=== PATIENT | female | born 1960 | race Caucasian/White ===

== ENCOUNTER → 2016-08-08 | Day surgery (SDC) | payer MEDICARE | LOC: RAD 13:23 | PROVIDERS: ATTEND Orthopaedic Surgery | PROC: BP08ZZZ Plain Radiography of Right Shoulder (ICD-10-PCS; principal; 2016-08-08) | DX: M75.121 Complete rotator cuff tear or rupture of right shoulder, not specified as traumatic (principal); M25.511 Pain in right shoulder | CPT/HCPCS: 73040; 77002 ==

== ENCOUNTER 2016-11-13 13:29 | Inpatient (IN) | payer MEDICARE ==
[2016-11-13] MEDS ORDERED: TERBUTALINE SULFATE INJ/PF 1 MG/1 ML SDV SUBCUT ONE (13:36)
[2016-11-13] MEDS ORDERED: MAGNESIUM SULFATE/D5W 100 ML IV ONE (13:36)
[2016-11-13] MEDS ORDERED: IPRATROPIUM/ALBUTEROL 0.5-2.5 MG/3 ML AMPUL NEB ONE (13:37)
[2016-11-13 14:09] LABS: ABSOLUTE BASOPHILS # (AUTO) 0.1 10^3/uL (0.0-0.2); ABSOLUTE EOSINOPHILS # (AUTO) 0.5 10^3/uL (0.0-0.6); ABSOLUTE LYMPHOCYTES (AUTO) 2.1 10^3/uL (0.5-4.7); ABSOLUTE MONOCYTES (AUTO) 0.8 10^3/uL (0.1-1.4); ABSOLUTE NEUT (AUTO) 6.6 10^3/uL (1.7-8.2); BASOPHILS % (AUTO) 0.6 % (0-2); EOSINOPHILS % (AUTO) 5.4 % (0-6); HEMATOCRIT 37.3 % (36.0-47.0); HEMOGLOBIN 12.7 g/dL (12.0-15.5); HGB HCT DIFFERENCE 0.8; LYMPHOCYTES % (AUTO) 21.3 % (13-45); MEAN CORPUSCULAR HEMOGLOBIN 29.3 pg (27.0-33.4); MEAN CORPUSCULAR VOLUME 86 fl (80-97); MONOCYTES % (AUTO) 7.7 % (3-13); RED BLOOD COUNT 4.32 10^6/uL (3.72-5.28); RED CELL DISTRIBUTION WIDTH 14.7 % (11.5-14.0); WHITE BLOOD COUNT 10.1 10^3/uL (4.0-10.5)
[2016-11-13 14:24] LABS: VENOUS BLOOD BASE EXCESS -0.7 mmol/L; VENOUS BLOOD HCO3 23.8 mmol/L (20-32); VENOUS BLOOD PCO2 38.6 mmHg (35-63); VENOUS BLOOD PH 7.41 (7.30-7.42)
[2016-11-13 14:26] LABS: BLOOD UREA NITROGEN 19 mg/dL (7-20); CALCIUM 9.5 mg/dL (8.4-10.2); CREATININE RESULT 1.01 mg/dL (0.52-1.25); GLUCOSE 119 mg/dL (75-110)
[2016-11-13 14:27] LABS: ALANINE AMINOTRANSFERASE 26 U/L (9-52); ALBUMIN 4.1 g/dL (3.5-5.0); ALKALINE PHOSPHATASE 98 U/L (38-126); ANION GAP 14 (5-19); ASPARTATE AMINO TRANSFERASE 24 U/L (14-36); BILIRUBIN,DIRECT 0.5 mg/dL (0.0-0.4); BILIRUBIN,TOTAL 0.8 mg/dL (0.2-1.3); CARBON DIOXIDE 26 mmol/L (22-30); CHLORIDE 102 mmol/L (98-107); LIPASE 74.9 U/L (23-300); MAGNESIUM 3.4 mg/dL (1.6-2.3); POTASSIUM 4.4 mmol/L (3.6-5.0); SODIUM 141.6 mmol/L (137-145); TOTAL PROTEIN 7.7 g/dL (6.3-8.2)
--- NOTE | 2016-11-13 16:03 | ER Document Report ---
ED General - General Chief Complaint: Breathing Difficulty Stated Complaint: RESPIRATORY PROBLEM TRAVEL OUTSIDE OF THE [place] IN LAST 30 DAYS: No - HPI Patient complains to provider of: difficulty breathing Notes: Patient coming in via EMS from local urgent care after being seen for an acute asthma exacerbation. Patient was given albuterol treatment steroids and a dose of Rocephin prior to arrival here. Patient indicates that she has been intubated in the past for asthma patient has approximate 2-3 word dyspnea most of the other history of present illness is obtained from EMS. No difficulty in breathing the last few days due to recent travel no fevers influenza is up-to- date no other medical problems. Patient is on a mask with albuterol treatment upon my evaluation patient is very tachypneic with a respiratory rate approximately 35-40 - Related Data Allergies/Adverse Reactions: codeine [Codeine] Allergy (Verified 12/13/15 09:11) morphine [Morphine] Allergy (Verified 12/13/15 09:11) Sulfa (Sulfonamide Antibiotics) Allergy (Verified 12/13/15 09:11) Past Medical History - Social History Smoking Status: Unknown if Ever Smoked Family History: Reviewed & Not Pertinent - Past Medical History Cardiac Medical History: Denies: Hx Coronary Artery Disease, Hx Heart Attack, Hx Hypertension - hypotension Pulmonary Medical History: Reports: Hx Asthma Denies: Hx Bronchitis, Hx COPD, Hx Pneumonia Neurological Medical History: Denies: Hx Cerebrovascular Accident, Hx Seizures Past Surgical History: Reports: Hx Cardiac Surgery - Pacemaker/defib, Hx Pacemaker - Immunizations Immunizations up to date: Yes Hx Diphtheria, Pertussis, Tetanus Vaccination: Yes Hx Pneumococcal Vaccination: 07/20/12 Review of Systems - Review of Systems Constitutional: No symptoms reported EENT: No symptoms reported Cardiovascular: No symptoms reported Respiratory: Cough, Short of breath, Wheezing Gastrointestinal: No symptoms reported Genitourinary: No symptoms reported Female Genitourinary: No symptoms reported Musculoskeletal: No symptoms reported Skin: No symptoms reported Hematologic/Lymphatic: No symptoms reported Neurological/Psychological: No symptoms reported -: Yes All other systems reviewed and negative Physical Exam - Vital signs Vitals: Resp Pulse Ox 30 H 97 11/13/16 13:37 11/13/16 13:37 Interpretation: Tachypneic - General General appearance: Appears well, Alert - HEENT Head: Normocephalic, Atraumatic Eyes: Normal Pupils: PERRL - Respiratory Respiratory status: Respiratory distress - [id number] Chest status: Accessory muscle use Breath sounds: Rhonchi, Wheezing Chest palpation: Normal - Cardiovascular Rhythm: Regular Heart sounds: Normal auscultation Murmur: No - Abdominal Inspection: Normal Distension: No distension Bowel sounds: Normal Tenderness: Nontender Organomegaly: No organomegaly - Back Back: Normal, Nontender - Extremities General upper extremity: Normal inspection, Nontender, Normal color, Normal ROM , Normal temperature General lower extremity: Normal inspection, Nontender, Normal color, Normal ROM , Normal temperature, Normal weight bearing. No: Nina's sign - Neurological Neuro grossly intact: Yes Cognition: Normal Orientation: AAOx4 Larry Coma Scale Eye Opening: Spontaneous Lyons Coma Scale Verbal: Oriented Larry Coma Scale Motor: Obeys Commands Larry Coma Scale Total: 15 Speech: Normal Motor strength normal: LUE, RUE, LLE, RLE Sensory: Normal - Psychological Associated symptoms: Normal affect, Normal mood - Skin Skin Temperature: Warm Skin Moisture: Dry Skin Color: Normal Course - Re-evaluation Re-evalutation: 11/13/16 16:06 Patient with improvement after BiPAP. Patient case was discussed with hospitalist. This patient due to history may benefit from being in the ICU. Patient will be admitted for further evaluation. - Vital Signs Vital signs: Temp Pulse Resp BP Pulse Ox 15 133/90 H 100 11/13/16 15:01 11/13/16 15:01 11/13/16 15:01 - Laboratory Result Diagrams: 11/13/16 14:00 11/13/16 14:00 Laboratory results interpreted by me: 11/13/16 11/13/16 14:00 14:00 RDW 14.7 H Est GFR (Non-Af Amer) 56 L Glucose 119 H Magnesium 3.4 H Direct Bilirubin 0.5 H Critical Care Note - Critical Care Note Total time excluding time spent on procedures (mins): 40 Comments: Multiple evaluations managing BiPAP with patient with respiratory distress Discharge - Discharge Clinical Impression: Acute asthma exacerbation Qualifiers: Asthma severity: unspecified severity Qualified Code(s): J45.901 - Unspecified asthma with (acute) exacerbation Condition: Good Disposition: ADMITTED INPATIENT Admitting Provider: Hospitalist [facility] Unit Admitted: ICU Referrals: RACHEL HERRERA NP [Primary Care Provider] - Follow up as needed
[2016-11-13 16:23] LABS: ARTERIAL BLOOD BASE EXCESS -0.6 mmol/L; ARTERIAL BLOOD O2 SATURATION 84.7 % (94-98)
[2016-11-13] MEDS ORDERED: ALBUTEROL SULFATE 0.083% NEB 2.5 MG/3 ML AMPUL NEB PRN (16:23)
--- NOTE | 2016-11-13 16:47 | PDOC H&P ---
History of Present Illness Admission Date/PCP: 11/13/16 16:18 RACHEL HERRERA NP Patient complains of: Shortness of breath History of Present Illness: TALON LOPEZ is a 56 year old female Patient coming in via EMS from local urgent care after being seen for an acute asthma exacerbation. Patient was given albuterol treatment steroids and a dose of Rocephin prior to arrival here. Patient indicates that she has been intubated in the past for asthma patient has approximate 2-3 word dyspnea most of the other history of present illness is obtained from EMS. No difficulty in breathing the last few days due to recent travel no fevers influenza is up-to- date no other medical problems. Patient is on a mask with albuterol treatment upon my evaluation patient is very tachypneic with a respiratory rate approximately 35-40 Past Medical History Cardiac Medical History: Denies: Coronary Artery Disease, Myocardial Infarction, Hypertension - hypotension Pulmonary Medical History: Reports: Asthma Denies: Bronchitis, Chronic Obstructive Pulmonary Disease (COPD), Pneumonia Neurological Medical History: Denies: Seizures Hematology: Reports: Anemia Past Surgical History Past Surgical History: Reports: Pacemaker Social History Smoking Status: Unknown if Ever Smoked Past Social History Note: Unable to obtain information There is no family at the bedside ; patient is extremely dyspneic on BiPAP - Advance Directive Resuscitation Status: Full Code Family History Family History: Other - Unable to obtain the information patient cannot answer questions appropriately Parental Family History Reviewed: Yes Children Family History Reviewed: Yes Sibling(s) Family History Reviewed.: Yes Medication/Allergy Home Medications: Calcium Carbonate/Vitamin D3 [Calcium 600 + Vit D 400 Tablet] 1 tab PO DAILY Cetirizine HCl [Zyrtec 10 mg Chewable Tab] 1 tab PO DAILY 12/13/15 Cyanocobalamin (Vitamin B-12) [Vitamin B-12] 1 tab PO DAILY 12/13/15 Duloxetine HCl [Cymbalta] 1 cap PO DAILY 12/13/15 Gabapentin [Neurontin] 1 tab PO TID 12/13/15 L.acid/L.casei/B.bif/B.marcel/Fos [Probiotic Blend Capsule] 1 cap PO DAILY Naproxen 1 tab PO BID 12/13/15 Oxybutynin Chloride [Ditropan Xl] 1 tab PO DAILY 05/26/16 Propranolol HCl [Propranolol HCl ER] 80 mg PO DAILY 12/13/15 Temazepam 1 cap PO QHS 12/13/15 Allergies/Adverse Reactions: codeine [Codeine] Allergy (Verified 12/13/15 09:11) morphine [Morphine] Allergy (Verified 12/13/15 09:11) Sulfa (Sulfonamide Antibiotics) Allergy (Verified 12/13/15 09:11) Review of Systems ROS unobtainable: Other - Due to respiratory distress patient is on BiPAP Physical Exam Vital Signs: Temp Pulse Resp BP Pulse Ox 26 H 125/69 100 11/13/16 16:01 11/13/16 16:01 11/13/16 16:01 General appearance: PRESENT: severe distress, well-developed, well-nourished Head exam: PRESENT: atraumatic, normocephalic Eye exam: PRESENT: conjunctiva pink, EOMI, PERRLA. ABSENT: scleral icterus Respiratory exam: PRESENT: accessory muscle use, decreased breath sounds, wheezes Cardiovascular exam: PRESENT: RRR, tachycardia. ABSENT: rubs, systolic murmur Pulses: PRESENT: normal dorsalis pedis pul Vascular exam: PRESENT: normal capillary refill GI/Abdominal exam: PRESENT: normal bowel sounds, soft. ABSENT: distended, guarding, mass, organolmegaly, rebound, tenderness Rectal exam: PRESENT: deferred Neurological exam: PRESENT: awake, CN II-XII grossly intact Psychiatric exam: PRESENT: anxious Skin exam: PRESENT: dry, intact, warm. ABSENT: cyanosis, rash Results Impressions: Chest X-Ray 11/13/16 13:36 IMPRESSION: NO ACUTE RADIOGRAPHIC FINDING IN THE CHEST. Assessment & Plan - Diagnosis (1) Acute hypoxemic respiratory failure Is this a current diagnosis for this admission?: Yes (2) Acute asthma exacerbation Qualifiers: Asthma severity: unspecified severity Qualified Code(s): J45.901 - Unspecified asthma with (acute) exacerbation Is this a current diagnosis for this admission?: Yes - Time Time Spent with patient: continue patient on BiPAP support mentation so far is good VBGs showed a normal pH and hypoxemia Very poor IV access no central line will be placed Patient will be admitted to the intensive care unit for closer monitoring We will treat the patient with steroids nebs antibiotics The chest x-ray appears normal with a small cardiac silhouette but we'll obtain a BNP Patient's condition is critical if her condition worsens through the night she may need endotracheal intubation Critical Time spent with patient: 35 or more minutes
[2016-11-13] MEDS ORDERED: LEVOFLOXACIN 750 MG/D5W RTU 750 MG/150 ML RTUPB IV ONE (17:00)
--- NOTE | 2016-11-13 17:03 | Operative Report ---
Operative Report DATE OF SURGERY: 11/13/16 PREOPERATIVE DIAGNOSIS: Respiratory compromise critical need for intravenous access POSTOPERATIVE DIAGNOSIS: Same OPERATION: Right subclavian triple-lumen central venous catheter placement SURGEON: COREY RIVERA ANESTHESIA: Local TISSUE REMOVED OR ALTERED: None COMPLICATIONS: None ESTIMATED BLOOD LOSS: minimal INTRAOPERATIVE FINDINGS: None PROCEDURE: Informed consent was obtained. Patient's right the neck and chest was prepped and draped in usual sterile fashion. Local anesthetic was administered. The right subclavian vein was entered without difficulty. Guidewire was placed into the central circulation. Triple lumen central venous catheter was placed via the Seldinger technique. It withdrew blood and flushed easily. It was sutured in place. Dressings were applied. Patient tolerated procedure well with no apparent complications. Stat portable chest x-ray was ordered.
[2016-11-13] MEDS: NORMAL SALINE 1000 ML 1,000 ML IV PRN (17:54)
[2016-11-13] MEDS: METHYLPREDNISOLONE INJ 125 MG/2 ML SDV IV SCH (17:55)
[2016-11-13] MEDS ORDERED: DOXYCYCLINE HYCLATE 100 MG TABLET PO ONE (18:00)
[2016-11-13 18:38] LABS: APPEARANCE,URINE CLEAR; BILIRUBIN,URINE NEGATIVE (NEGATIVE); GLUCOSE, URINE NEGATIVE (NEGATIVE); KETONES,URINE NEGATIVE (NEGATIVE); LEUKOCYTE ESTERASE,URINE NEGATIVE (NEGATIVE); NITRITE,URINE POSITIVE (NEGATIVE); PROTEIN,URINE NEGATIVE (NEGATIVE); UROBILINOGEN,URINE NEGATIVE mg/dL (<2.0)
[2016-11-13] MEDS: BUDESONIDE NEB 0.5 MG/2 ML AMPUL NEB SCH (19:47)
[2016-11-13] MEDS: IPRATROPIUM/ALBUTEROL 0.5-2.5 MG/3 ML AMPUL NEB SCH (20:07)
[2016-11-13] MEDS: DOXYCYCLINE HYCLATE 100 MG TABLET PO SCH (22:04)
[2016-11-14] MEDS: METHYLPREDNISOLONE INJ 125 MG/2 ML SDV IV SCH ×4 (00:25→21:49)
[2016-11-14] MEDS: NORMAL SALINE 1000 ML 1,000 ML IV PRN (00:26)
[2016-11-14 06:29] LABS: ABSOLUTE LYMPHOCYTES (AUTO) 1.6 10^3/uL (0.5-4.7); ABSOLUTE MONOCYTES (AUTO) 0.2 10^3/uL (0.1-1.4); ABSOLUTE NEUT (AUTO) 9.1 10^3/uL (1.7-8.2); BASOPHILS % (AUTO) 0.1 % (0-2); HEMATOCRIT 36.8 % (36.0-47.0); HEMOGLOBIN 12.2 g/dL (12.0-15.5); HGB HCT DIFFERENCE -0.2; LYMPHOCYTES % (AUTO) 14.7 % (13-45); MEAN CORPUSCULAR VOLUME 88 fl (80-97); MONOCYTES % (AUTO) 1.6 % (3-13); SEGMENTED NEUTROPHILS % (AUTO) 83.6 % (42-78); WHITE BLOOD COUNT 10.9 10^3/uL (4.0-10.5)
[2016-11-14 06:53] LABS: ALANINE AMINOTRANSFERASE 22 U/L (9-52); ALBUMIN 3.9 g/dL (3.5-5.0); ALKALINE PHOSPHATASE 79 U/L (38-126); ANION GAP 13 (5-19); ASPARTATE AMINO TRANSFERASE 23 U/L (14-36); BILIRUBIN,DIRECT 0.4 mg/dL (0.0-0.4); BILIRUBIN,TOTAL 0.6 mg/dL (0.2-1.3); BLOOD UREA NITROGEN 19 mg/dL (7-20); CALCIUM 9.1 mg/dL (8.4-10.2); CARBON DIOXIDE 22 mmol/L (22-30); CHLORIDE 108 mmol/L (98-107); CREATININE RESULT 0.71 mg/dL (0.52-1.25); GLUCOSE 156 mg/dL (75-110); SODIUM 142.6 mmol/L (137-145); TOTAL PROTEIN 7.2 g/dL (6.3-8.2)
[2016-11-14] MEDS: BUDESONIDE NEB 0.5 MG/2 ML AMPUL NEB SCH ×2 (08:03→19:56)
[2016-11-14] MEDS: IPRATROPIUM/ALBUTEROL 0.5-2.5 MG/3 ML AMPUL NEB SCH ×4 (08:03→19:56)
[2016-11-14 08:31] LABS: VENOUS BLOOD BASE EXCESS -2.7 mmol/L; VENOUS BLOOD HCO3 21.6 mmol/L (20-32); VENOUS BLOOD PCO2 35.6 mmHg (35-63); VENOUS BLOOD PH 7.4 (7.30-7.42)
--- NOTE | 2016-11-14 09:41 | EKG REPORT ---
SEVERITY:- BORDERLINE ECG - SINUS OR ECTOPIC ATRIAL RHYTHM BORDERLINE T ABNORMALITIES, INFERIOR LEADS BORDERLINE PROLONGED QT INTERVAL : Confirmed by: Vitor Ramirez 14-Nov-2016 09:40:53
--- NOTE | 2016-11-14 09:42 | EKG REPORT ---
SEVERITY:- ABNORMAL ECG - ACCELERATED JUNCTIONAL RHYTHM LEFT AXIS DEVIATION PROLONGED QT INTERVAL : Confirmed by: Vitor Ramirez 14-Nov-2016 09:41:32
[2016-11-14] MEDS ORDERED: LEVOFLOXACIN 750 MG/D5W RTU 750 MG/150 ML RTUPB IV SCH (10:00)
[2016-11-14] MEDS ORDERED: SUMATRIPTAN SUCCINATE 50 MG TABLET PO PRN (10:26)
[2016-11-14] MEDS ORDERED: (PENDING PHARMACY ID) (Temazepam [Temazepam] 30 MG) PO PRN (10:26)
[2016-11-14] MEDS ORDERED: CYCLOBENZAPRINE HCL 10 MG TABLET PO PRN (10:26)
[2016-11-14] MEDS: ENOXAPARIN SODIUM INJ 40 MG/0.4 ML DISP.SYRIN SUBCUT SCH (10:27)
[2016-11-14] MEDS: DOXYCYCLINE HYCLATE 100 MG TABLET PO SCH ×2 (10:27→21:48)
[2016-11-14] MEDS: PANTOPRAZOLE SODIUM 40 MG VIAL IV SCH (10:27)
--- NOTE | 2016-11-14 10:42 | PDOC PROGRESS REPORT ---
Subjective Progress Note for:: 11/14/16 Subjective:: Patient is doing a lot better She is comfortable on nasal cannula She is alert and awake She has minimal wheezing but still somewhat tachypneic Physical Exam Vital Signs: Temp Pulse Resp BP Pulse Ox 97.5 F 60 16 125/43 L 100 11/14/16 08:37 11/14/16 08:37 11/14/16 08:37 11/14/16 08:37 11/14/16 08:37 Intake & Output 11/13/16 11/14/16 11/15/16 00:59 00:59 00:59 Intake Total 0 Output Total 200 Balance -200 0 Weight 73.482 kg 88.1 kg General appearance: PRESENT: no acute distress, well-developed, well-nourished Head exam: PRESENT: atraumatic, normocephalic Eye exam: PRESENT: conjunctiva pink, EOMI, PERRLA. ABSENT: scleral icterus Ear exam: PRESENT: normal external ear exam Mouth exam: PRESENT: moist, tongue midline Neck exam: ABSENT: carotid bruit, JVD, lymphadenopathy, thyromegaly Respiratory exam: PRESENT: clear to auscultation everardo. ABSENT: rales, rhonchi, wheezes Cardiovascular exam: PRESENT: RRR. ABSENT: diastolic murmur, rubs, systolic murmur Pulses: PRESENT: normal dorsalis pedis pul Vascular exam: PRESENT: normal capillary refill GI/Abdominal exam: PRESENT: normal bowel sounds, soft. ABSENT: distended, guarding, mass, organolmegaly, rebound, tenderness Rectal exam: PRESENT: deferred Extremities exam: PRESENT: full ROM. ABSENT: calf tenderness, clubbing, pedal edema Neurological exam: PRESENT: alert, awake, oriented to person, oriented to place , oriented to time, oriented to situation, CN II-XII grossly intact. ABSENT: motor sensory deficit Psychiatric exam: PRESENT: appropriate affect, normal mood. ABSENT: homicidal ideation, suicidal ideation Skin exam: PRESENT: dry, intact, warm. ABSENT: cyanosis, rash Results Laboratory Results: 11/14/16 06:00 11/14/16 06:00 11/14/16 11/14/16 11/14/16 06:00 06:00 06:00 WBC 10.9 H RBC 4.20 Hgb 12.2 Hct 36.8 MCV 88 MCH 29.0 MCHC 33.0 RDW 15.0 H Plt Count 310 Seg Neutrophils % 83.6 H Lymphocytes % 14.7 Monocytes % 1.6 L Eosinophils % 0.0 Basophils % 0.1 Absolute Neutrophils 9.1 H Absolute Lymphocytes 1.6 Absolute Monocytes 0.2 Absolute Eosinophils 0.0 Absolute Basophils 0.0 VBG pH VBG pCO2 VBG HCO3 VBG Base Excess Sodium 142.6 Potassium 4.0 Chloride 108 H Carbon Dioxide 22 Anion Gap 13 BUN 19 Creatinine 0.71 Est GFR ( Amer) > 60 Est GFR (Non-Af Amer) > 60 Glucose 156 H Calcium 9.1 Total Bilirubin 0.6 AST 23 ALT 22 Alkaline Phosphatase 79 Total Protein 7.2 Albumin 3.9 TSH 0.38 L 11/14/16 08:21 WBC RBC Hgb Hct MCV MCH MCHC RDW Plt Count Seg Neutrophils % Lymphocytes % Monocytes % Eosinophils % Basophils % Absolute Neutrophils Absolute Lymphocytes Absolute Monocytes Absolute Eosinophils Absolute Basophils VBG pH 7.40 VBG pCO2 35.6 VBG HCO3 21.6 VBG Base Excess -2.7 Sodium Potassium Chloride Carbon Dioxide Anion Gap BUN Creatinine Est GFR ( Amer) Est GFR (Non-Af Amer) Glucose Calcium Total Bilirubin AST ALT Alkaline Phosphatase Total Protein Albumin TSH 11/14/16 06:00 NT-Pro-B Natriuret Pep 544 Impressions: Chest X-Ray 11/13/16 13:36 IMPRESSION: NO ACUTE RADIOGRAPHIC FINDING IN THE CHEST. Assessment & Plan - Diagnosis (1) Acute hypoxemic respiratory failure Is this a current diagnosis for this admission?: Yes (2) Acute asthma exacerbation Qualifiers: Asthma severity: unspecified severity Qualified Code(s): J45.901 - Unspecified asthma with (acute) exacerbation Is this a current diagnosis for this admission?: Yes - Time Time Spent with patient: We will start decreasing steroids Continue other meds Reordered home meds Patient to be evaluated in the morning for discharge if clinically improved
[2016-11-14] MEDS ORDERED: LACTOBACILLUS ACIDOPHILUS 250 MG TAB PO ONE (12:00)
[2016-11-14] MEDS ORDERED: CHOLECALCIFEROL (D3) 1,000 UNIT TABLET PO ONE (12:00)
[2016-11-14] MEDS ORDERED: DULOXETINE HCL 30 MG CAPSULE.DR PO ONE (12:00)
[2016-11-14] MEDS ORDERED: ACETAMINOPHEN 325 MG TABLET ONE (13:04)
[2016-11-14] MEDS: CALCIUM CARBONATE 500 MG TABLET PO SCH (13:05)
[2016-11-14] MEDS: GABAPENTIN 400 MG CAPSULE PO SCH ×2 (13:13→21:48)
[2016-11-14] MEDS: MECLIZINE HCL 25 MG TABLET PO SCH ×2 (13:13→17:10)
[2016-11-14] MEDS ORDERED: (PENDING PHARMACY ID) (Gabapentin [Gabapentin] 800 MG) PO SCH (14:00)
[2016-11-14] MEDS ORDERED: PROPRANOLOL HCL 40 MG TABLET PO ONE (16:45)
[2016-11-15] MEDS: TEMAZEPAM 15 MG CAPSULE PO PRN (00:42)
[2016-11-15] MEDS ORDERED: SUMATRIPTAN SUCCINATE 100 MG TABLET ONE (06:15)
[2016-11-15] MEDS: GABAPENTIN 400 MG CAPSULE PO SCH ×3 (06:17→21:32)
[2016-11-15] MEDS: METHYLPREDNISOLONE INJ 125 MG/2 ML SDV IV SCH ×3 (06:18→21:32)
[2016-11-15] MEDS: IPRATROPIUM/ALBUTEROL 0.5-2.5 MG/3 ML AMPUL NEB SCH ×4 (08:10→20:32)
[2016-11-15] MEDS: BUDESONIDE NEB 0.5 MG/2 ML AMPUL NEB SCH ×2 (08:10→20:32)
[2016-11-15] MEDS: MECLIZINE HCL 25 MG TABLET PO SCH ×3 (09:18→17:24)
[2016-11-15] MEDS: DULOXETINE HCL 30 MG CAPSULE.DR PO SCH (09:18)
[2016-11-15] MEDS: ENOXAPARIN SODIUM INJ 40 MG/0.4 ML DISP.SYRIN SUBCUT SCH (09:18)
[2016-11-15] MEDS: DOXYCYCLINE HYCLATE 100 MG TABLET PO SCH ×2 (09:18→21:32)
[2016-11-15] MEDS: PROPRANOLOL HCL 40 MG TABLET PO SCH (09:18)
[2016-11-15] MEDS: LACTOBACILLUS ACIDOPHILUS 250 MG TAB PO SCH (09:18)
[2016-11-15] MEDS: PANTOPRAZOLE SODIUM 40 MG VIAL IV SCH (09:18)
[2016-11-15] MEDS: CETIRIZINE 10 MG TABLET PO SCH (09:19)
[2016-11-15] MEDS ORDERED: CHOLECALCIFEROL (D3) 1,000 UNIT TABLET PO SCH (10:00)
[2016-11-15] MEDS ORDERED: (PENDING PHARMACY ID) (Duloxetine Hcl [Duloxetine Hcl] 60 MG) PO SCH (10:00)
[2016-11-15] MEDS ORDERED: CHOLECALCIFEROL 1000 UNIT PO SCH (10:00)
[2016-11-15] MEDS ORDERED: CALCIUM CARBONATE 600 MG PO SCH (10:00)
[2016-11-15] MEDS ORDERED: (PENDING PHARMACY ID) (Lactobacillus Acidophilus [Probiotic] 1 EACH) PO SCH (10:00)
[2016-11-15] MEDS ORDERED: (PENDING PHARMACY ID) (Propranolol Hcl [Inderal La] 80 MG) PO SCH (10:00)
[2016-11-15] MEDS ORDERED: GUAIFENESIN 600 MG TABLET.SA PO ONE (11:15)
[2016-11-15] MEDS: CALCIUM CARBONATE 500 MG TABLET PO SCH (12:08)
[2016-11-15 12:54] LABS: THYROID STIMULATING HORMONE 0.14 uIU/mL (0.47-4.68)
--- NOTE | 2016-11-15 14:21 | PDOC PROGRESS REPORT ---
Subjective Progress Note for:: 11/15/16 Subjective:: feels better cough increased non productive less wheezing Physical Exam Vital Signs: Temp Pulse Resp BP Pulse Ox 98.0 F 61 17 119/63 100 11/15/16 10:59 11/15/16 10:59 11/15/16 10:59 11/15/16 10:59 11/15/16 10:59 Intake & Output 11/14/16 11/15/16 11/16/16 00:59 00:59 00:59 Intake Total 1780 420 Output Total 200 Balance -200 1780 420 Weight 73.482 kg 88.1 kg 88.8 kg General appearance: PRESENT: no acute distress Eye exam: PRESENT: conjunctiva pink, EOMI, PERRLA. ABSENT: scleral icterus Neck exam: ABSENT: carotid bruit, JVD, lymphadenopathy, thyromegaly Respiratory exam: PRESENT: wheezes - expiratory Cardiovascular exam: PRESENT: RRR. ABSENT: diastolic murmur, rubs, systolic murmur Pulses: PRESENT: normal dorsalis pedis pul GI/Abdominal exam: PRESENT: normal bowel sounds, soft. ABSENT: distended, guarding, mass, organolmegaly, rebound, tenderness Neurological exam: PRESENT: alert, awake, oriented to person, oriented to place , oriented to time, oriented to situation, CN II-XII grossly intact. ABSENT: motor sensory deficit Results Laboratory Results: 11/14/16 06:00 11/14/16 06:00 11/15/16 11:26 TSH 0.14 L Free T4 0.79 11/14/16 06:00 NT-Pro-B Natriuret Pep 544 Impressions: Chest X-Ray 11/13/16 13:36 IMPRESSION: NO ACUTE RADIOGRAPHIC FINDING IN THE CHEST. Assessment & Plan - Diagnosis (1) Acute hypoxemic respiratory failure Is this a current diagnosis for this admission?: Yes (2) Acute asthma exacerbation Qualifiers: Asthma severity: unspecified severity Qualified Code(s): J45.901 - Unspecified asthma with (acute) exacerbation Is this a current diagnosis for this admission?: Yes - Time Time Spent with patient: will add flutter valve and mucinex will downgrade to medical unit Time Spent with patient: 25-34 minutes
[2016-11-15] MEDS: GUAIFENESIN 600 MG TABLET.SA PO SCH (21:33)
[2016-11-16] MEDS: TEMAZEPAM 15 MG CAPSULE PO PRN (00:10)
[2016-11-16 00:58] VITALS: BP 124/53
[2016-11-16] MEDS: GABAPENTIN 400 MG CAPSULE PO SCH (05:54)
[2016-11-16] MEDS: METHYLPREDNISOLONE INJ 125 MG/2 ML SDV IV SCH (05:54)
[2016-11-16] MEDS ORDERED: SUMATRIPTAN SUCCINATE 100 MG TABLET ONE (07:08)
[2016-11-16] MEDS: ENOXAPARIN SODIUM INJ 40 MG/0.4 ML DISP.SYRIN SUBCUT SCH (07:31)
[2016-11-16] MEDS: IPRATROPIUM/ALBUTEROL 0.5-2.5 MG/3 ML AMPUL NEB SCH ×2 (08:08→12:04)
[2016-11-16] MEDS: BUDESONIDE NEB 0.5 MG/2 ML AMPUL NEB SCH (08:08)
[2016-11-16] MEDS ORDERED: PREDNISONE 20 MG TABLET PO SCH (10:00)
[2016-11-16] MEDS: GUAIFENESIN 600 MG TABLET.SA PO SCH (11:34)
[2016-11-16] MEDS: DULOXETINE HCL 30 MG CAPSULE.DR PO SCH (11:34)
[2016-11-16] MEDS: PROPRANOLOL HCL 40 MG TABLET PO SCH (11:35)
[2016-11-16] MEDS: PANTOPRAZOLE SODIUM 40 MG VIAL IV SCH (11:35)
[2016-11-16] MEDS: CETIRIZINE 10 MG TABLET PO SCH (11:35)
[2016-11-16] MEDS: MECLIZINE HCL 25 MG TABLET PO SCH (11:35)
[2016-11-16] MEDS: LACTOBACILLUS ACIDOPHILUS 250 MG TAB PO SCH (11:35)
[2016-11-16] MEDS: DOXYCYCLINE HYCLATE 100 MG TABLET PO SCH (11:36)
[2016-11-16] MEDS: CALCIUM CARBONATE 500 MG TABLET PO SCH (11:49)
--- NOTE | 2016-11-16 15:29 | PDOC DISCHARGE SUMMARY ---
General - Admit/Disc Date/PCP Admission Date/Primary Care Provider: 11/13/16 16:16 RACHEL HERRERA NP Discharge Date: 11/16/16 - Discharge Diagnosis (1) Acute hypoxemic respiratory failure Is this a current diagnosis for this admission?: Yes (2) Acute asthma exacerbation Is this a current diagnosis for this admission?: Yes - Additional Information Resuscitation Status: Full Code Discharge Diet: As Tolerated Discharge Activity: Activity As Tolerated Home Medications: Albuterol Sulfate [Proair Respiclick] 180 mcg IH Q4H 11/13/16 Calcium Carbonate 600 mg PO DAILY 11/13/16 Cetirizine HCl [Allergy] 10 mg PO DAILY 11/13/16 Cholecalciferol (Vitamin D3) [Vitamin D3] 1,000 units PO DAILY 11/13/16 Cyclobenzaprine HCl 10 mg PO TIDP PRN 11/13/16 Duloxetine HCl 60 mg PO DAILY 11/13/16 Gabapentin 800 mg PO TID 11/13/16 Lactobacillus Acidophilus [Probiotic] 1 each PO DAILY 11/13/16 Meclizine HCl 25 mg PO TID 11/13/16 Naproxen 500 mg PO BIDBS 11/13/16 Oxybutynin Chloride [Ditropan Xl] 10 mg PO DAILY 11/13/16 Promethazine HCl 25 mg PO Q6HP PRN 11/13/16 Sumatriptan Succinate [Imitrex 50 mg Tablet] 50 mg PO PRN PRN 11/13/16 Temazepam 30 mg PO HSP PRN 11/13/16 Doxycycline Hyclate [Vibramycin 100 mg Tablet] 100 mg PO Q12 #14 tablet Ipratropium/Albuterol Sulfate [Duoneb 3 ml Ampul] 3 ml NEB [id number] #1 packet Metoprolol Tartrate [Lopressor 25 mg Tablet] 25 mg PO Q12 #60 tab 11/16/16 Prednisone [Deltasone 20 mg Tablet] 40 mg PO DAILY #30 tablet 11/16/16 History of Present Illness Patient complains of: Shortness of breath History of Present Illness: TALON LOPEZ is a 56 year old female Patient coming in via EMS from local urgent care after being seen for an acute asthma exacerbation. Patient was given albuterol treatment steroids and a dose of Rocephin prior to arrival here. Patient indicates that she has been intubated in the past for asthma patient has approximate 2-3 word dyspnea most of the other history of present illness is obtained from EMS. No difficulty in breathing the last few days due to recent travel no fevers influenza is up-to- date no other medical problems. Patient is on a mask with albuterol treatment upon my evaluation patient is very tachypneic with a respiratory rate approximately 35-40 Hospital Course Hospital Course: Patient was admitted with moderate severe respiratory distress and had to be placed on BiPAP support on admission She had long history of bronchial asthma, cardiac arrhythmia she was status post pacemaker; chronically on propranolol Patient improved within 48 hours ; she was treated with steroid nebs and doxycycline At discharge we switched propranolol to metoprolol 25 mg twice a day Oxygenation was excellent at discharge she did not need supplemental O2 Physical Exam Vital Signs: Temp Pulse Resp BP Pulse Ox 98.0 F 78 18 124/53 L 98 11/16/16 08:00 11/16/16 12:16 11/16/16 12:16 11/16/16 08:00 11/16/16 12:16 Intake & Output 11/15/16 11/16/16 11/17/16 00:59 00:59 00:59 Intake Total 1780 1545 220 Balance 1780 1545 220 Weight 88.1 kg 88.8 kg 89.5 kg General appearance: PRESENT: no acute distress, well-developed, well-nourished Head exam: PRESENT: atraumatic, normocephalic Eye exam: PRESENT: conjunctiva pink, EOMI, PERRLA. ABSENT: scleral icterus Ear exam: PRESENT: normal external ear exam Mouth exam: PRESENT: moist, tongue midline Neck exam: ABSENT: carotid bruit, JVD, lymphadenopathy, thyromegaly Respiratory exam: PRESENT: clear to auscultation everardo. ABSENT: rales, rhonchi, wheezes Cardiovascular exam: PRESENT: RRR. ABSENT: diastolic murmur, rubs, systolic murmur Pulses: PRESENT: normal dorsalis pedis pul Vascular exam: PRESENT: normal capillary refill GI/Abdominal exam: PRESENT: normal bowel sounds, soft. ABSENT: distended, guarding, mass, organolmegaly, rebound, tenderness Rectal exam: PRESENT: deferred Extremities exam: PRESENT: full ROM. ABSENT: calf tenderness, clubbing, pedal edema Neurological exam: PRESENT: alert, awake, oriented to person, oriented to place , oriented to time, oriented to situation, CN II-XII grossly intact. ABSENT: motor sensory deficit Psychiatric exam: PRESENT: appropriate affect, normal mood. ABSENT: homicidal ideation, suicidal ideation Skin exam: PRESENT: dry, intact, warm. ABSENT: cyanosis, rash Results Laboratory Results: 11/14/16 06:00 11/14/16 06:00 11/14/16 06:00 NT-Pro-B Natriuret Pep 544 11/14/16 06:00 11/14/16 06:00 MCV 88 fl (80-97) 11/14/16 06:00 MCH 29.0 pg (27.0-33.4) 11/14/16 06:00 MCHC 33.0 g/dL (32.0-36.0) 11/14/16 06:00 RDW 15.0 % (11.5-14.0) H 11/14/16 06:00 Seg Neutrophils % 83.6 % (42-78) H 11/14/16 06:00 Lymphocytes % 14.7 % (13-45) 11/14/16 06:00 Monocytes % 1.6 % (3-13) L 11/14/16 06:00 Eosinophils % 0.0 % (0-6) 11/14/16 06:00 Basophils % 0.1 % (0-2) 11/14/16 06:00 Absolute Neutrophils 9.1 10^3/uL (1.7-8.2) H 11/14/16 06:00 Absolute Lymphocytes 1.6 10^3/uL (0.5-4.7) 11/14/16 06:00 Absolute Monocytes 0.2 10^3/uL (0.1-1.4) 11/14/16 06:00 Absolute Eosinophils 0.0 10^3/uL (0.0-0.6) 11/14/16 06:00 Absolute Basophils 0.0 10^3/uL (0.0-0.2) 11/14/16 06:00 Carbonic Acid 1.07 mmol/L (1.05-1.35) 11/13/16 15:37 HCO3/H2CO3 Ratio 21:1 11/13/16 15:37 ABG pH 7.43 (7.35-7.45) 11/13/16 15:37 ABG pCO2 35.4 mmHg (35-45) 11/13/16 15:37 ABG pO2 47.2 mmHg (80-100) L 11/13/16 15:37 ABG HCO3 23.2 mmol/L (20-26) 11/13/16 15:37 ABG O2 Saturation 84.7 % (94-98) L 11/13/16 15:37 ABG Base Excess -0.6 mmol/L 11/13/16 15:37 VBG pH 7.40 (7.30-7.42) 11/14/16 08:21 VBG pCO2 35.6 mmHg (35-63) 11/14/16 08:21 VBG HCO3 21.6 mmol/L (20-32) 11/14/16 08:21 VBG Base Excess -2.7 mmol/L 11/14/16 08:21 FiO2 35% 11/13/16 15:37 Chloride 108 mmol/L (98-107) H 11/14/16 06:00 Carbon Dioxide 22 mmol/L (22-30) 11/14/16 06:00 Anion Gap 13 (5-19) 11/14/16 06:00 Est GFR ( Amer) > 60 (>60) 11/14/16 06:00 Est GFR (Non-Af Amer) > 60 (>60) 11/14/16 06:00 Glucose 156 mg/dL (75-110) H 11/14/16 06:00 Calcium 9.1 mg/dL (8.4-10.2) 11/14/16 06:00 Magnesium 3.4 mg/dL (1.6-2.3) H 11/13/16 14:00 Total Bilirubin 0.6 mg/dL (0.2-1.3) 11/14/16 06:00 AST 23 U/L (14-36) 11/14/16 06:00 ALT 22 U/L (9-52) 11/14/16 06:00 Alkaline Phosphatase 79 U/L (38-126) 11/14/16 06:00 Total Protein 7.2 g/dL (6.3-8.2) 11/14/16 06:00 Albumin 3.9 g/dL (3.5-5.0) 11/14/16 06:00 Lipase 74.9 U/L (23-300) 11/13/16 14:00 TSH 0.14 uIU/mL (0.47-4.68) L 11/15/16 11:26 Free T4 0.79 ng/dL (0.78-2.19) 11/15/16 11:26 Urine Color YELLOW 11/13/16 14:00 Urine Appearance CLEAR 11/13/16 14:00 Urine pH 5.0 (5.0-9.0) 11/13/16 14:00 Ur Specific [place] 1.010 11/13/16 14:00 Urine Protein NEGATIVE mg/dL (NEGATIVE) 11/13/16 14:00 Urine Glucose (UA) NEGATIVE mg/dL (NEGATIVE) 11/13/16 14:00 Urine Ketones NEGATIVE mg/dL (NEGATIVE) 11/13/16 14:00 Urine Blood SMALL (NEGATIVE) H 11/13/16 14:00 Urine Nitrite POSITIVE (NEGATIVE) H 11/13/16 14:00 Ur Leukocyte Esterase NEGATIVE (NEGATIVE) 11/13/16 14:00 Urine WBC (Auto) 3 /HPF 11/13/16 14:00 Urine RBC (Auto) 1 /HPF 11/13/16 14:00 11/13/16 11/14/16 14:00 06:00 NT-Pro-B Natriuret Pep 117 544 Impressions: Chest X-Ray 11/13/16 13:36 IMPRESSION: NO ACUTE RADIOGRAPHIC FINDING IN THE CHEST. Plan Discharge Plan: Discharged home Follow up with primary care physician in the week
== END 2016-11-16 13:00 | disposition home or self-care (01) | DRG 202 ==
LOC: ER 13:29 → EH 16:16 → UNDOADMIN 16:18 → 4S 11-14 00:12
PROVIDERS: ADMIT Emergency Medicine; ATTEND Emergency Medicine
PROC: 02H633Z Insertion of Infusion Device into Right Atrium, Percutaneous Approach (ICD-10-PCS; principal; 2016-11-13)
PROC: 5A09457 Assistance with Respiratory Ventilation, 24-96 Consecutive Hours, Continuous Positive Airway Pressure (ICD-10-PCS; 2016-11-13)
DX: J45.901 Unspecified asthma with (acute) exacerbation (principal); J96.01 Acute respiratory failure with hypoxia; I87.2 Venous insufficiency (chronic) (peripheral); Z88.6 Allergy status to analgesic agent; Z88.2 Allergy status to sulfonamides; Z95.0 Presence of cardiac pacemaker; Z79.899 Other long term (current) drug therapy
CPT/HCPCS: 36415; 36600; 71010; 80053; 81001; 82803; 83690; 83735; 83880; 84439; 84443; 85025; 87040; 93005; 93010; 94640; 94660; 96365; 96372; 99291; C1751; J1650; J2930; J3105; J3475; J3490; J7030; J7512; J7620; S0164

== ENCOUNTER → 2016-12-30 | Outpatient (CLI) | payer MEDICARE | LOC: OD 14:32 | PROVIDERS: ATTEND Internal Medicine Critical Care Medicine | DX: J45.909 Unspecified asthma, uncomplicated (principal); Z87.09 Personal history of other diseases of the respiratory system; K21.9 Gastro-esophageal reflux disease without esophagitis; R05 Cough; F51.04 Psychophysiologic insomnia; M79.7 Fibromyalgia; K90.0 Celiac disease; G83.4 Cauda equina syndrome | CPT/HCPCS: 36415; 82785 ==

== ENCOUNTER 2018-09-15 16:48 | Emergency (ER) | payer MEDICARE ==
[2018-09-15 17:12] VITALS: BP 149/71
[2018-09-15] MEDS ORDERED: DIPH/PERTUSS(ACELL)/TETANUS VAC/PF 0.5 ML SYR (>=10YO) IM ONE (17:36)
--- NOTE | 2018-09-15 17:38 | ER Document Report ---
ED Wound - General Chief Complaint: Laceration Stated Complaint: LACERATION TO LEFT RING FINGER Time Seen by Provider: 09/15/18 17:20 Primary Care Provider: ANGELICA RODRIGUEZ MD [Primary Care Provider] - Follow up as needed Mode of Arrival: Ambulatory Information source: Patient Notes: Chief complaint: Laceration History of complain:( obtained from----patient) 58 years old female presents today with left ring finger distal phalanx minor laceration sustained by an knife. Just prior to arrival Onset: Sudden Duration: Few hours Severity: After performing a Medical Screening Examination, I estimate there is LOW risk for OPEN FRACTURE, COMPARTMENT SYNDROME, TENDON RUPTURE, ACUTE NEUROVASCULAR INJURY, or RETAINED FOREIGN BODY, thus I consider the discharge disposition reasonable. Also, there is no evidence or peritonitis, sepsis, or toxicity. I have reevaluated this patient multiple times and no significant life threatening changes are noted. The patient and I have discussed the diagnosis and risks, and we agree with discharging home with close follow-up with the understanding that symptoms and presentations can change. We also discussed returning to the Emergency Department immediately if new or worsening symptoms occur. We have discussed the symptoms which are most concerning (e.g., changing or worsening pain, fever, numbness, weakness, cool or painful digits) that necessitate immediate return. Quality: Context: Exacerbating factor and relieving factors: REVIEW OF SYSTEMS: CONSTITUTIONAL : Denies fever, chills, or sweats. Denies recent illness. EENT: Denies eye, ear, throat, or mouth pain or symptoms. Denies nasal or sinus congestion or discharge. Denies throat, tongue, or mouth swelling or difficulty swallowing. CARDIOVASCULAR: Denies chest pain. Denies palpitations or racing or irregular heart beat. Denies ankle edema. RESPIRATORY: Denies cough, cold, or chest congestion. Denies shortness of breath, difficulty breathing, or wheezing. GASTROINTESTINAL: Denies distention. Denies nausea, vomiting, or diarrhea. Denies blood in vomitus, stools, or per rectum. Denies black, tarry stools. Denies constipation. GENITOURINARY: Denies difficulty urinating, painful urination, burning, frequency, blood in urine, or discharge. FEMALE GENITOURINARY: Denies vaginal bleeding, heavy or abnormal periods, irregular periods. Denies vaginal discharge or odor. MUSCULOSKELETAL: Denies back or neck pain or stiffness. Denies joint pain or swelling. SKIN: Denies rash, lesions or sores. HEMATOLOGIC : Denies easy bruising or bleeding. LYMPHATIC: Denies swollen, enlarged glands. NEUROLOGICAL: Denies confusion or altered mental status. Denies passing out or loss of consciousness. Denies dizziness or lightheadedness. Denies headache. Denies weakness or paralysis or loss of use of either side. Denies problems with gait or speech. Denies sensory loss, numbness, or tingling. Denies seizures. PSYCHIATRIC: Denies anxiety or stress. Denies depression, suicidal ideation, or homicidal ideation. ALL OTHER SYSTEMS REVIEWED AND NEGATIVE. PHYSICAL EXAMINATION: GENERAL: Well-appearing, well-nourished and in no acute distress. SKIN: Examination of the skin over the left ring finger at the distal phalanx has a minor laceration of 1.5 cm noted. Dictation was performed using [employer] voice recognition software TRAVEL OUTSIDE OF THE [place] IN LAST 30 DAYS: No - HPI Notes: Dictated - Related Data Allergies/Adverse Reactions: codeine [Codeine] Allergy (Verified 09/15/18 16:49) levofloxacin [From Levaquin] Allergy (Verified 09/15/18 16:49) morphine [Morphine] Allergy (Verified 09/15/18 16:49) Sulfa (Sulfonamide Antibiotics) Allergy (Verified 09/15/18 16:49) Past Medical History - Social History Smoking Status: Never Smoker Drug Abuse: None Lives with: Family Family History: Reviewed & Not Pertinent, Other - Unable to obtain the inform ation patient cannot answer questions appropriately - Past Medical History Cardiac Medical History: Denies: Hx Coronary Artery Disease, Hx Heart Attack, Hx Hypertension - hypotension Pulmonary Medical History: Reports: Hx Asthma Denies: Hx Bronchitis, Hx COPD, Hx Pneumonia Neurological Medical History: Denies: Hx Cerebrovascular Accident, Hx Seizures Psychiatric Medical History: Reports: Hx Depression Past Surgical History: Reports: Hx Cardiac Surgery - Pacemaker/defib, Hx Pacemaker - Immunizations Immunizations up to date: Yes Hx Diphtheria, Pertussis, Tetanus Vaccination: Yes Hx Pneumococcal Vaccination: 07/20/12 Review of Systems - Review of Systems Notes: Dictated Physical Exam - Vital signs Vitals: Temp Pulse Resp BP Pulse Ox 98.8 F 69 16 149/71 H 96 09/15/18 17:10 09/15/18 17:10 09/15/18 17:10 09/15/18 17:10 09/15/18 17:10 - Notes Notes: Dictated Course - Vital Signs Vital signs: Temp Pulse Resp BP Pulse Ox 98.8 F 69 16 149/71 H 96 09/15/18 17:10 09/15/18 17:10 09/15/18 17:10 09/15/18 17:10 09/15/18 17:10 Procedures - Laceration/Wound Repair Left 4th digit Time completed: 17:30 Wound length (cm): 1.5 Wound's Depth, Shape: Superficial Wound explored: Clean Wound Repaired With: Dermabond Discharge - Discharge Clinical Impression: Laceration of ring finger Qualifiers: Encounter type: initial encounter Damage to nail status: without damage Foreign body presence: without foreign body Laterality: left Qualified Code(s): S61.215A - Laceration without foreign body of left ring finger without damage to nail, initial encounter Condition: Fair Disposition: HOME, SELF-CARE Instructions: Laceration Care ([facility]) Referrals: ANGELICA RODRIGUEZ MD [Primary Care Provider] - Follow up as needed
== END 2018-09-15 17:52 | disposition home or self-care (01) ==
LOC: ER 16:48
DX: S61.215A Laceration without foreign body of left ring finger without damage to nail, initial encounter (principal); W26.0XXA Contact with knife, initial encounter; Y93.G9 Activity, other involving cooking and grilling; J45.909 Unspecified asthma, uncomplicated; Z88.5 Allergy status to narcotic agent; Z88.1 Allergy status to other antibiotic agents; Z88.2 Allergy status to sulfonamides
CPT/HCPCS: 90471; 90715; 99282

== ENCOUNTER → 2019-05-20 | Outpatient (CLI) | payer MEDICARE ==
--- NOTE | 2019-05-20 09:40 | WOMENS IMAGING REPORT ---
EXAM DESCRIPTION: 3D SCREENING MAMMO BILAT COMPLETED DATE/TIME: 05/20/2019 9:06 am REASON FOR STUDY: Z12.31 SCREENING MAMMO Z12.31 ENCNTR SCREEN MAMMOGRAM FOR MALIGNANT NEOPLASM OF B RE COMPARISON: 2014 EXAM PARAMETERS: Views: Standard craniocaudal and mediolateral oblique views of each breast recorded using digital acquisition and breast tomosynthesis. Read with the assistance of CAD. .[facility] - [employer] Version 9.2 LIMITATIONS: Battery pack left. FINDINGS: No suspicious masses, suspicious calcifications or architectural distortion. No areas of c oncern. IMPRESSION: NEGATIVE MAMMOGRAM. BIRADS 1. BREAST DENSITY: b. There are scattered areas of fibroglandular density. BIRAD: ASSESSMENT: 1 NEGATIVE RECOMMENDATION: ROUTINE SCREENING COMMENT: The patient has been notified of the results by letter per [place] requirements. Additional no tification policies are in place for contacting patient with suspicious or incomplete findings. Quality ID #[id number]: The [employer] recommends an annual screening mammogram for women aged 40 years or over. This facility utilizes a reminder system to ensure that all patients receive reminder letters, and/or direct phone calls for appointments. This includes reminders for routine scr eening mammograms, diagnostic mammograms, or other Breast Imaging Interventions when appropriate. Th is patient will be placed in the appropriate reminder system. TECHNICAL DOCUMENTATION: FINDING NUMBER: (1) ASSESSMENT: (1) JOB ID: [id number] [employer]- All Rights Reserved Reading location - IP/workstation name: [email or web address]
== END ==
LOC: WI 08:50
PROVIDERS: ATTEND Nurse Practitioner
DX: Z12.31 Encounter for screening mammogram for malignant neoplasm of breast (principal)
CPT/HCPCS: 77063; 77067